=== PATIENT | female | born 1955 | race Caucasian/White ===

== ENCOUNTER 2018-01-03 19:19 | Observation (INO) | payer BC ==
[~2018-01-03] VITALS: Ht 162.6 cm; Wt 64.1 kg
--- NOTE | 2018-01-03 19:30 | PD ---
HPI Chief Complaint: Respiratory distress Time Seen by Provider: 19:29 Travel History International Travel<30 days: No Contact w/Intl Traveler<30days: No Traveled to known affect area: No History of Present Illness HPI 62-year-old female came to the emergency room with history of respiratory distress has been going on for past 5 days. Patient has history of asthma. She was seen in urgent care about 3 days ago and was started on Levaquin. Patient thought that she had albuterol inhaler and was using it. Today she realized that the inhaler was . Her symptoms have not been improving and actually progressively getting worse. This is the reason she came to the emergency room. No history of chest pain. Shortness of breath is worse when she ambulates. Patient's oxygen saturation was in the 80s in triage and was brought in emergently. Patient is awake and answering questions appropriately. [facility] Past Medical History Narrative Medical List of her past medical, surgical, social and family history reviewed from the nursing note. Social History Tobacco Use: No Allergies-Medications (Allergen,Severity, Reaction): Coded Allergies: Sulfa (Sulfonamide Antibiotics) (Verified Allergy, Unknown, 01/03/18) Comments List of her allergies reviewed from the nursing note. Reported Meds & Prescriptions Reported Meds & Active Scripts Active Prednisone 20 Mg Tab 20 Mg PO DIRECTED Take 60 MG daily x 4 days, then 40 MG x 4 days, then 20 MG daily x 4 days. Oxygen tank (Oxygen) 1 Ea Tank Liter NELSON.CANULA CONTINUOUS PRN Oxygen Concentrator Portable Gaseous 2 L/min via Nasal Cannula Continuous For 99 months Nebulizer/Adult Mask (N/A) 1 Kit Kit Kit .XX DIRECTED Xopenex Neb (Levalbuterol HCl) 0.63 Mg/3 Ml Neb 0.63 Mg NEB Q4HR NEB PRN 14 Days Reported Zyrtec (Cetirizine HCl) 10 Mg Tab.rapdis 10 Mg PO DAILY Xopenex Neb (Levalbuterol HCl) 0.63 Mg/3 Ml Neb 0.63 Mg NEB PRN Crestor (Rosuvastatin Calcium) 20 Mg Tab 20 Mg PO HS Estradiol 0.5 Mg Tab 0.5 Mg PO HS Valsartan-Hydrochlorothiazide 80-12.5 Mg Tab 1 Tab PO DAILY Metoprolol Tartrate 100 Mg Tab 100 Mg PO HS Singulair (Montelukast Sodium) 10 Mg Tab 10 Mg PO HS Metformin (Metformin HCl) 500 Mg Tab 1,000 Mg PO DAILYAC Narrative Medication Awaiting for the nurse to do the med reconciliation. Review of Systems Except as stated in HPI: all other systems reviewed are Neg Respiratory: Positive: Shortness of Breath Physical Exam Narrative GENERAL: Awake, alert, moderate distress SKIN: Focused skin assessment warm/dry. HEAD: Atraumatic. Normocephalic. EYES: Pupils equal and round. No scleral icterus. No injection or drainage. ENT: No nasal bleeding or discharge. Mucous membranes pink and moist. NECK: Trachea midline. No JVD. CARDIOVASCULAR: Regular rate and rhythm. No murmur appreciated. RESPIRATORY: Moderate respiratory distress. Diminished air entry bilaterally. GASTROINTESTINAL: Abdomen soft, non-tender, nondistended. Hepatic and splenic margins not palpable. MUSCULOSKELETAL: No obvious deformities. No clubbing. No cyanosis. No edema. NEUROLOGICAL: Awake and alert. No obvious cranial nerve deficits. Motor grossly within normal limits. Normal speech. PSYCHIATRIC: Appropriate mood and affect; insight and judgment normal. Data Data Last Documented VS Vital Signs Date Time Temp Pulse Resp B/P (MAP) Pulse Ox O2 Delivery O2 Flow Rate FiO2 01/03/18 23:00 93 18 162/75 (104) 95 Nasal Cannula 4.00 01/03/18 20:47 98.3 Orders Orders Complete Blood Count With Diff (01/03/18 19:38) Basic Metabolic Panel (Bmp) (01/03/18 19:38) B-Type Natriuretic Peptide (01/03/18 19:38) Troponin I (01/03/18 19:38) Iv Access Insert/Monitor (01/03/18 19:38) Electrocardiogram (01/03/18 19:38) Ecg Monitoring (01/03/18 19:38) Oximetry (01/03/18 19:38) Oxygen Administration (01/03/18 19:38) Chest, Single Ap (01/03/18 19:38) Sodium Chloride 0.9% Flush (Ns Flush) (01/03/18 19:45) Methylprednisolone So Succ Inj (Solumedr (01/03/18 19:45) Albuterol-Ipratropium Neb (Duoneb Neb) (01/03/18 19:45) Albuterol Neb (Albuterol Neb) (01/03/18 21:30) Ct Pulmonary Angiogram (01/03/18 ) Sodium Chlor 0.9% 1000 Ml Inj (Ns 1000 M (01/03/18 21:45) Iohexol 350 Inj (Omnipaque 350 Inj) (01/03/18 22:51) Arterial Blood Gas (Abg) (01/03/18 ) Place In Observation (01/04/18 ) Vital Signs (Adult) Q4H (01/04/18 01:06) Diet Heart Healthy (01/04/18 Breakfast) Sodium Chloride 0.9% Flush (Ns Flush) (01/04/18 09:00) Sodium Chloride 0.9% Flush (Ns Flush) (01/04/18 01:15) Albuterol Neb (Albuterol Neb) (01/04/18 01:15) Methylprednisolone So Succ Inj (Solumedr (01/04/18 02:00) Basic Metabolic Panel (Bmp) (01/04/18 06:00) Complete Blood Count With Diff (01/04/18 06:00) Heparin Inj (Heparin Inj) (01/04/18 06:00) Resp Oxygen Nelson C Titrat 1-4 L (01/04/18 ) Admit Order (Ed Use Only) (01/04/18 01:27) Labs Laboratory Tests Test 01/03/18 19:50 01/04/18 00:05 White Blood Count 9.4 TH/MM3 Red Blood Count 4.72 MIL/MM3 Hemoglobin 13.6 GM/DL Hematocrit 41.5 % Mean Corpuscular Volume 88.0 FL Mean Corpuscular Hemoglobin 28.8 PG Mean Corpuscular Hemoglobin Concent 32.8 % Red Cell Distribution Width 12.7 % Platelet Count 210 TH/MM3 Mean Platelet Volume 7.9 FL Neutrophils (%) (Auto) 84.9 % Lymphocytes (%) (Auto) 7.4 % Monocytes (%) (Auto) 6.9 % Eosinophils (%) (Auto) 0.0 % Basophils (%) (Auto) 0.8 % Neutrophils # (Auto) 7.9 TH/MM3 Lymphocytes # (Auto) 0.7 TH/MM3 Monocytes # (Auto) 0.7 TH/MM3 Eosinophils # (Auto) 0.0 TH/MM3 Basophils # (Auto) 0.1 TH/MM3 CBC Comment DIFF FINAL Differential Comment Blood Urea Nitrogen 23 MG/DL Creatinine 0.99 MG/DL Random Glucose 129 MG/DL Calcium Level 9.2 MG/DL Sodium Level 137 MEQ/L Potassium Level 3.7 MEQ/L Chloride Level 101 MEQ/L Carbon Dioxide Level 28.0 MEQ/L Anion Gap 8 MEQ/L Estimat Glomerular Filtration Rate 57 ML/MIN Troponin I LESS THAN 0.02 NG/ML B-Type Natriuretic Peptide 38 PG/ML Blood Gas Puncture Site RFEM Blood Gas Patient Temperature 98.6 Blood Gas HCO3 22 mmol/L Blood Gas Base Excess -2.6 mmol/L Blood Gas Oxygen Saturation 90 % Arterial Blood pH 7.36 Arterial Blood Partial Pressure CO2 40 mmHG Arterial Blood Partial Pressure O2 65 mmHG Arterial Blood Oxygen Content 17.4 Vol % Arterial Blood Carboxyhemoglobin 1.1 % Arterial Blood Methemoglobin 1.2 % Blood Gas Hemoglobin 13.7 G/DL Blood Gas Inspired Oxygen 21 % MDM Medical Decision Making Medical Screen Exam Complete: Yes Emergency Medical Condition: Yes Medical Record Reviewed: Yes Interpretation(s) Twelve-lead EKG was reviewed by me. Normal sinus rhythm, left axis deviation, nonspecific ST-T wave changes. Heart rate of 86 bpm. Differential Diagnosis COPD exacerbation, pneumonia, pleural effusion, congestive heart failure Narrative Course 10:03 PM blood test results are back and within acceptable limits. Chest x-ray has been read unremarkable by the radiologist. Patient was given 3 DuoNeb's and Solu-Medrol initially. Air entry has improved and patient says she feels better. However oxygen saturation was 93% with 2 L of oxygen via nasal cannula. Patient normally does not require oxygen at home. I wanted to see her oxygen saturation on room air. Patient ambulated to the bathroom and upon returning I was told by the nurse that oxygen went down to 65%. She was put back on nasal cannula. I have ordered for 2 more albuterol nebulizer. If patient continues to remain hypoxic she will require admission. I have also ordered a CT pulmonary angiogram for this hypoxia out of proportion to rule out PE at this point. 11PM CT pulmonary angiogram is pending. Case was signed over to the oncoming ER physician. Procedures EKG Prior to Arrival: No Scripts Prednisone (Prednisone) 20 Mg Tab 20 MG PO DIRECTED for copd, #24 TAB 0 Refills Take 60 MG daily x 4 days, then 40 MG x 4 days, then 20 MG daily x 4 days. Prov: Kait Gentile MD 01/04/18 Oxygen tank (Oxygen tank) 1 Ea Tank LITER NELSON.CANULA CONTINUOUS Y for shortness of breath, hypoxia, #2 0 Refills Oxygen Concentrator Portable Gaseous 2 L/min via Nasal Cannula Continuous For 99 months Prov: Kait Gentile MD 01/04/18 Nebulizer/Adult Mask (Nebulizer/Adult Mask) 1 Kit Kit KIT .XX DIRECTED for Breathing Treatment, #1 0 Refills Prov: Kait Gentile MD 01/04/18 Levalbuterol Neb (Xopenex Neb) 0.63 Mg/3 Ml Neb 0.63 MG NEB Q4HR NEB Y for wheezing for 14 Days, #120 NEBULE Prov: Kait Gentile MD 01/04/18 Holly Daniels MD Jan 03, 2018 19:30
[2018-01-03 19:32] VITALS: BP 169/87; PULSE 96; RESP 24; TEMP 98.5; O2SAT 88
[2018-01-03] MEDS ORDERED: methylPREDNISolone SOD SUCC 125 MG/2 ML VIAL IV PUSH ONE (19:45)
[2018-01-03] MEDS ORDERED: SODIUM CHLORIDE 0.9% FLUSH 10 ML FLUSH IVF PRN (19:45)
[2018-01-03] MEDS: RESP: ALBUTEROL 2.5 MG/IPRATROPIUM 0.5 MG NEB (SCH) INH (19:48)
[2018-01-03 19:55] VITALS: O2SAT 90
[2018-01-03 19:58] LABS: AUTOMATED NEUTROPHIL # 7.9 TH/MM3 (1.8-7.7); BASOPHIL # 0.1 TH/MM3 (0-0.2); BASOPHIL % 0.8 % (0.0-2.0); HEMATOCRIT 41.5 % (35.0-46.0); HEMOGLOBIN 13.6 GM/DL (11.6-15.3); LYMPH % 7.4 % (9.0-44.0); LYMPHOCYTE # 0.7 TH/MM3 (1.0-4.8); MEAN CORPUSCULAR HEMOGLOBIN 28.8 PG (27.0-34.0); MEAN CORPUSCULAR HGB CONC 32.8 % (32.0-36.0); MEAN PLATELET VOLUME 7.9 FL (7.0-11.0); MONO % 6.9 % (0.0-8.0); MONOCYTE # 0.7 TH/MM3 (0-0.9); NEUT % 84.9 % (16.0-70.0); PLATELET COUNT 210 TH/MM3 (150-450); RED BLOOD COUNT 4.72 MIL/MM3 (4.00-5.30); RED CELL DISTRIBUTION WIDTH 12.7 % (11.6-17.2); WHITE BLOOD COUNT 9.4 TH/MM3 (4.0-11.0)
[2018-01-03 20:05] LABS: CHLORIDE 101 MEQ/L (98-107); SODIUM (NA) 137 MEQ/L (136-145)
[2018-01-03 20:07] LABS: CALCIUM 9.2 MG/DL (8.5-10.1)
[2018-01-03 20:08] LABS: BLOOD UREA NITROGEN 23 MG/DL (7-18); GLUCOSE,RANDOM 129 MG/DL (74-106)
[2018-01-03 20:11] LABS: CREATININE 0.99 MG/DL (0.50-1.00); GLOMERULAR FILTRATION RATE 57 ML/MIN (>89)
[2018-01-03 20:16] LABS: TROPONIN I LESS THAN 0.02 NG/ML (0.02-0.05)
[2018-01-03 20:20] VITALS: O2SAT 93
[2018-01-03 20:47] VITALS: BP 148/63; PULSE 92; RESP 18; TEMP 98.3; O2SAT 94
--- NOTE | 2018-01-03 20:56 | RADRPT ---
EXAM DATE/TIME: 01/03/2018 19:53 [facility] COMPARISON: No previous studies available for comparison. INDICATIONS : Short of breath. MEDICAL HISTORY : Bronchitis. SURGICAL HISTORY : None. ENCOUNTER: Initial ACUITY: 1 day PAIN SCORE: 3/10 LOCATION: Bilateral chest FINDINGS: A single view of the chest demonstrates the lungs to be symmetrically aerated without evidence of mas s, infiltrate or effusion. The cardiomediastinal contours are unremarkable. Osseous structures are intact. CONCLUSION: No acute disease. Viraj Puga MD FACR on January 03, 2018 at 20:54 Board Certified Radiologist. This report was verified electronically.
[2018-01-03 21:30] VITALS: BP 170/70; PULSE 100; RESP 18; O2SAT 94
[2018-01-03] MEDS: RESP: ALBUTEROL 2.5 MG/3 ML NEB (SCH) INH (21:37)
[2018-01-03] MEDS ORDERED: SODIUM CHLOR 0.9% 1000 ML INJ 1,000 ML IV ONE (21:45)
[2018-01-03] MEDS ORDERED: IOHEXOL 350 MG/ML 10 ML VIAL (for RAD DIAG) IVCONTRAST ONE (22:51)
[2018-01-03 23:00] VITALS: BP 162/75; PULSE 93; RESP 18; O2SAT 95
--- NOTE | 2018-01-03 23:13 | RADRPT ---
EXAM DATE/TIME: 01/03/2018 22:37 [facility] COMPARISON: No previous studies available for comparison. INDICATIONS : Shortness of breath. IV CONTRAST: 65 cc Omnipaque 350 (iohexol) IV RADIATION DOSE: 10.60 CTDIvol (mGy) MEDICAL HISTORY : Hypertension. SURGICAL HISTORY : None. ENCOUNTER: Initial ACUITY: 1 day PAIN SCALE: 0/10 LOCATION: chest TECHNIQUE: Volumetric scanning of the chest was performed using a pulmonary embolism protocol MIP images were re constructed. Using automated exposure control and adjustment of the mA and/or kV according to patien t size, radiation dose was kept as low as reasonably achievable to obtain optimal diagnostic quality images. DICOM format image data is available electronically for review and comparison. Follow-up recommendations for detected pulmonary nodules are based at a minimum on nodule size and pa tient risk factors according to Fleischner Society Guidelines. FINDINGS: PULMONARY ARTERIES: No filling defects are seen in the pulmonary arteries through the segmental level. LUNGS: Densely calcified left lower lobe granuloma. PLEURAE: There is no pleural thickening or pleural effusion. MEDIASTINUM: There is good visualization of the great vessels of the middle mediastinum. No evidence of mediastin al or hilar adenopathy/mass. MUSCULOSKELETAL: Within normal limits for patient age. CONCLUSION: No evidence of pulmonary embolism Franko Mccarty MD on January 03, 2018 at 23:01 Board Certified Radiologist. This report was verified electronically.
--- NOTE | 2018-01-03 23:18 | PD ---
Physical Exam Time Seen by Provider: 23:[address] Arnett left this patient with me to check the results of the CT pulmonary angiogram and make a disposition, likely admission. Data Data Last Documented VS Vital Signs Date Time Temp Pulse Resp B/P (MAP) Pulse Ox O2 Delivery O2 Flow Rate FiO2 01/03/18 21:30 100 18 170/70 (103) 94 Nasal Cannula 2.00 01/03/18 20:47 98.3 Orders Orders Complete Blood Count With Diff (01/03/18 19:38) Basic Metabolic Panel (Bmp) (01/03/18 19:38) B-Type Natriuretic Peptide (01/03/18 19:38) Troponin I (01/03/18 19:38) Iv Access Insert/Monitor (01/03/18 19:38) Electrocardiogram (01/03/18 19:38) Ecg Monitoring (01/03/18 19:38) Oximetry (01/03/18 19:38) Oxygen Administration (01/03/18 19:38) Chest, Single Ap (01/03/18 19:38) Sodium Chloride 0.9% Flush (Ns Flush) (01/03/18 19:45) Methylprednisolone So Succ Inj (Solumedr (01/03/18 19:45) Albuterol-Ipratropium Neb (Duoneb Neb) (01/03/18 19:45) Albuterol Neb (Albuterol Neb) (01/03/18 21:30) Ct Pulmonary Angiogram (01/03/18 ) Sodium Chlor 0.9% 1000 Ml Inj (Ns 1000 M (01/03/18 21:45) Iohexol 350 Inj (Omnipaque 350 Inj) (01/03/18 22:51) Arterial Blood Gas (Abg) (01/03/18 ) Place In Observation (01/04/18 ) Vital Signs (Adult) Q4H (01/04/18 01:06) Diet Heart Healthy (01/04/18 Breakfast) Sodium Chloride 0.9% Flush (Ns Flush) (01/04/18 09:00) Sodium Chloride 0.9% Flush (Ns Flush) (01/04/18 01:15) Albuterol Neb (Albuterol Neb) (01/04/18 01:15) Methylprednisolone So Succ Inj (Solumedr (01/04/18 02:00) Basic Metabolic Panel (Bmp) (01/04/18 06:00) Complete Blood Count With Diff (01/04/18 06:00) Heparin Inj (Heparin Inj) (01/04/18 06:00) Resp Oxygen Rakesh C Titrat 1-4 L (01/04/18 ) Labs Laboratory Tests Test 01/03/18 19:50 01/04/18 00:05 White Blood Count 9.4 TH/MM3 Red Blood Count 4.72 MIL/MM3 Hemoglobin 13.6 GM/DL Hematocrit 41.5 % Mean Corpuscular Volume 88.0 FL Mean Corpuscular Hemoglobin 28.8 PG Mean Corpuscular Hemoglobin Concent 32.8 % Red Cell Distribution Width 12.7 % Platelet Count 210 TH/MM3 Mean Platelet Volume 7.9 FL Neutrophils (%) (Auto) 84.9 % Lymphocytes (%) (Auto) 7.4 % Monocytes (%) (Auto) 6.9 % Eosinophils (%) (Auto) 0.0 % Basophils (%) (Auto) 0.8 % Neutrophils # (Auto) 7.9 TH/MM3 Lymphocytes # (Auto) 0.7 TH/MM3 Monocytes # (Auto) 0.7 TH/MM3 Eosinophils # (Auto) 0.0 TH/MM3 Basophils # (Auto) 0.1 TH/MM3 CBC Comment DIFF FINAL Differential Comment Blood Urea Nitrogen 23 MG/DL Creatinine 0.99 MG/DL Random Glucose 129 MG/DL Calcium Level 9.2 MG/DL Sodium Level 137 MEQ/L Potassium Level 3.7 MEQ/L Chloride Level 101 MEQ/L Carbon Dioxide Level 28.0 MEQ/L Anion Gap 8 MEQ/L Estimat Glomerular Filtration Rate 57 ML/MIN Troponin I LESS THAN 0.02 NG/ML B-Type Natriuretic Peptide 38 PG/ML Blood Gas Puncture Site RFEM Blood Gas Patient Temperature 98.6 Blood Gas HCO3 22 mmol/L Blood Gas Base Excess -2.6 mmol/L Blood Gas Oxygen Saturation 90 % Arterial Blood pH 7.36 Arterial Blood Partial Pressure CO2 40 mmHG Arterial Blood Partial Pressure O2 65 mmHG Arterial Blood Oxygen Content 17.4 Vol % Arterial Blood Carboxyhemoglobin 1.1 % Arterial Blood Methemoglobin 1.2 % Blood Gas Hemoglobin 13.7 G/DL Blood Gas Inspired Oxygen 21 % [facility] Medical Record Reviewed: Yes Supervised Visit with MARIEL: No Interpretation(s) The CT pulmonary angiogram shows no evidence of pulmonary embolus, a heavily calcified granuloma in the left lower lobe is noted. The CBC is normal except for 85% neutrophils. The BUN is 23 and glucose is 129 but the rest of the basic metabolic profile is normal. The troponin I and BNP are normal. Differential Diagnosis Pneumonia, COPD with acute exacerbation, allergic bronchospasm, hypoxemia Narrative Course When the patient walks around her oxygenation saturation drops into the mid 60s. When she lies down and rest it recovers to the upper 80s. Unfortunately, when her blood gases were drawn she was somewhat anxious and hyperventilating and the O2 sat was 90%. Physician Communication Physician Communication I discussed the patient with Dr. Fried, the patient will be 23 hour observation to her. Diagnosis Primary Impression: Bronchospasm, acute Additional Impression: Hypoxemia Admitting Information Admitting Physician Requests: Observation Disposition: 01 DISCHARGE [place] Raymundo Neville MD Jan 03, 2018 23:18
[2018-01-04] VITALS (9 sets, daily range): BP systolic 141–152; BP diastolic 63–89; PULSE 70–103; RESP 18–26; TEMP 98.3–99.2; O2SAT 91–95
[2018-01-04] MEDS ORDERED: RESP: ALBUTEROL 2.5 MG/3 ML NEB (PRN) INH (01:15)
[2018-01-04] MEDS ORDERED: SODIUM CHLORIDE 0.9% FLUSH 10 ML FLUSH IV FLUSH PRN (01:15)
[2018-01-04] MEDS: methylPREDNISolone SOD SUCC 125 MG/2 ML VIAL IV PUSH SCH ×3 (02:04→14:56)
[2018-01-04] MEDS ORDERED: ESTR0.5T PO (03:00)
[2018-01-04] MEDS ORDERED: METF500T PO (03:00)
[2018-01-04] MEDS ORDERED: METO100T PO (03:00)
[2018-01-04] MEDS ORDERED: ROSU20 PO (03:00)
[2018-01-04] MEDS ORDERED: CETI-14 PO (03:00)
[2018-01-04] MEDS ORDERED: MONT10TA2 PO (03:00)
[2018-01-04] MEDS ORDERED: VALS80TA2 PO (03:00)
[2018-01-04] MEDS ORDERED: LEVA.63I NEB ×2 (03:00→11:04)
[2018-01-04 04:52] LABS: AUTOMATED NEUTROPHIL # 8.7 TH/MM3 (1.8-7.7); BASOPHIL # 0.1 TH/MM3 (0-0.2); BASOPHIL % 0.6 % (0.0-2.0); EOSINOPHIL % 0.1 % (0.0-4.0); HEMATOCRIT 39.5 % (35.0-46.0); HEMOGLOBIN 13.2 GM/DL (11.6-15.3); LYMPH % 6.8 % (9.0-44.0); LYMPHOCYTE # 0.6 TH/MM3 (1.0-4.8); MEAN CORPUSCULAR HEMOGLOBIN 29.4 PG (27.0-34.0); MEAN CORPUSCULAR HGB CONC 33.4 % (32.0-36.0); MEAN PLATELET VOLUME 7.9 FL (7.0-11.0); MONO % 1.3 % (0.0-8.0); MONOCYTE # 0.1 TH/MM3 (0-0.9); NEUT % 91.2 % (16.0-70.0); PLATELET COUNT 175 TH/MM3 (150-450); RED BLOOD COUNT 4.49 MIL/MM3 (4.00-5.30); RED CELL DISTRIBUTION WIDTH 12.8 % (11.6-17.2); WHITE BLOOD COUNT 9.5 TH/MM3 (4.0-11.0)
[2018-01-04 05:04] LABS: BICARBONATE 26.5 MEQ/L (21.0-32.0); CALCIUM 8.4 MG/DL (8.5-10.1)
[2018-01-04 05:08] LABS: CREATININE 0.83 MG/DL (0.50-1.00)
[2018-01-04] MEDS: HEPARIN SODIUM - SQ 10,000 UNITS/ML VIAL SQ SCH ×2 (06:35→14:00)
[2018-01-04] MEDS ORDERED: ACETAMINOPHEN 325 MG TAB PO ONE (08:00)
[2018-01-04] MEDS ORDERED: SODIUM CHLORIDE 0.9% FLUSH 10 ML FLUSH IV FLUSH SCH (09:00)
--- NOTE | 2018-01-04 10:24 | HHI.HP ---
HPI Service [facility] Primary Care Physician No Primary Care Physician Admission Diagnosis Bronchitis with bronchospasm, hypoxemia Diagnoses: Travel History International Travel<30 Days: No Contact w/Intl Traveler <30 Da: No Traveled to Known Affected Are: No History of Present Illness hx from patient, ER notes, and review of medical records. pt reports she has been short of breath since Monday felt worse and worse with time and went to urgent care on Monday o2 was low in 70s high to low 80s at urgent care was given prednisone and levofloxacin prescription there states she usually gets worse with her chronic bronchitis like this when she gets allergies and sinus issues which she has been getting lately she was this time given prednisone but it is lower dose than her usual dose of episodes like this and she thought this might be why she is not improving today, she was quite dsypneic coming back to the car after dinner and finally at to drive her to hospital she also found out she has been using xopenex also reports of mild fever at home at rest 88% without oxygen on my exam Review of Systems Except as stated in HPI: all other systems reviewed are Neg Past Family Social History Past Medical History chronic bronchitis asthma induced by allergies usually twice a year symptoms - last episode in dec used to smoke from 15yrs old to about 45yo htn borderline dm hyperlipidemia Past Surgical History 3 c section hysterectomy Allergies: Coded Allergies: Sulfa (Sulfonamide Antibiotics) (Verified Allergy, Unknown, 01/03/18) Family History father- lung cancer grandfather- dm sister- borderline dm mom- htn, lipid Social History used to smoke , quit 15yrs ago no etoh abuse no drugs abuse snow[place] here- leaving at end of month Physical Exam Vital Signs Vital Signs Date Time Temp Pulse Resp B/P (MAP) Pulse Ox O2 Delivery O2 Flow Rate FiO2 01/04/18 07:51 95 Nasal Cannula 3.00 01/04/18 07:00 98.4 88 26 143/75 (97) 95 01/04/18 06:00 74 01/04/18 05:00 74 01/04/18 04:00 85 4/5/18 03:25 99.2 70 24 146/89 (108) 95 01/04/18 03:16 01/04/18 02:30 103 18 152/84 (106) 92 Nasal Cannula 4.00 01/03/18 23:00 93 18 162/75 (104) 95 Nasal Cannula 4.00 01/03/18 21:30 100 18 170/70 (103) 94 Nasal Cannula 2.00 01/03/18 20:47 98.3 92 18 148/63 (91) 94 Nasal Cannula 2.00 01/03/18 20:46 94 Nasal Cannula 2.00 01/03/18 20:20 93 Nasal Cannula 2.00 01/03/18 19:55 90 Room Air 01/03/18 19:52 Room Air 01/03/18 19:32 98.5 96 24 169/87 (114) 88 Physical Exam GENERAL: This is a well-nourished, well-developed patient, in no apparent distress. SKIN: No rashes, ecchymoses or lesions. Cool and dry. HEAD: Atraumatic. Normocephalic. No temporal or scalp tenderness. EYES: No scleral icterus. No injection or drainage. ENT: Nose without bleeding, purulent drainage or septal hematoma. Airway patent. NECK: Trachea midline. No JVD Supple, nontender, no meningeal signs. CARDIOVASCULAR: tachycardic around 100, regular rhythm without murmurs, gallops , or rubs. RESPIRATORY: bilaterally decreased air entry, tight air entry, GASTROINTESTINAL: Abdomen soft, non-tender, nondistended. No guarding. MUSCULOSKELETAL: Extremities without clubbing, cyanosis, or edema. No calf tenderness. NEUROLOGICAL: Awake and alert. Motor and sensory grossly within normal limits. Normal speech. Laboratory Laboratory Tests Test 01/03/18 19:50 01/04/18 00:05 01/04/18 04:40 White Blood Count 9.4 9.5 Red Blood Count 4.72 4.49 Hemoglobin 13.6 13.2 Hematocrit 41.5 39.5 Mean Corpuscular Volume 88.0 88.0 Mean Corpuscular Hemoglobin 28.8 29.4 Mean Corpuscular Hemoglobin Concent 32.8 33.4 Red Cell Distribution Width 12.7 12.8 Platelet Count 210 175 Mean Platelet Volume 7.9 7.9 Neutrophils (%) (Auto) 84.9 91.2 Lymphocytes (%) (Auto) 7.4 6.8 Monocytes (%) (Auto) 6.9 1.3 Eosinophils (%) (Auto) 0.0 0.1 Basophils (%) (Auto) 0.8 0.6 Neutrophils # (Auto) 7.9 8.7 Lymphocytes # (Auto) 0.7 0.6 Monocytes # (Auto) 0.7 0.1 Eosinophils # (Auto) 0.0 0.0 Basophils # (Auto) 0.1 0.1 CBC Comment DIFF FINAL DIFF FINAL Differential Comment Blood Urea Nitrogen 23 15 Creatinine 0.99 0.83 Random Glucose 129 170 Calcium Level 9.2 8.4 Sodium Level 137 139 Potassium Level 3.7 3.5 Chloride Level 101 104 Carbon Dioxide Level 28.0 26.5 Anion Gap 8 9 Estimat Glomerular Filtration Rate 57 70 Troponin I LESS THAN 0.02 B-Type Natriuretic Peptide 38 Blood Gas Puncture Site RFEM Blood Gas Patient Temperature 98.6 Blood Gas HCO3 22 Blood Gas Base Excess -2.6 Blood Gas Oxygen Saturation 90 Arterial Blood pH 7.36 Arterial Blood Partial Pressure CO2 40 Arterial Blood Partial Pressure O2 65 Arterial Blood Oxygen Content 17.4 Arterial Blood Carboxyhemoglobin 1.1 Arterial Blood Methemoglobin 1.2 Blood Gas Hemoglobin 13.7 Blood Gas Inspired Oxygen 21 Result Diagram: 01/04/1843901/04/18439 Caprini VTE Risk Assessment Caprini VTE Risk Assessment: Mod/High Risk (score >= 2) Caprini Risk Assessment Model Point Value = 1 Point Value = 2 Point Value = 3 Point Value = 5 Age 41-60 Minor surgery BMI > 25 kg/m2 Swollen legs Varicose veins or History of unexplained or recurrent spontaneous Oral contraceptives or hormone replacement Sepsis (< 1 month) Serious lung disease, including pneumonia (< 1 month) Abnormal pulmonary function Acute myocardial infarction Congestive heart failure (< 1 month) History of inflammatory bowel disease Medical patient at bed rest Age 61-74 Arthroscopic surgery Major open surgery (> 45 min) Laparoscopic surgery (> 45 min) Malignancy Confined to bed (> 72 hours) Immobilizing plaster cast Central venous access Age >= 75 History of VTE Family history of VTE Factor V Leiden Prothrombin [id number] Lupus anticoagulant Anticardiolipin antibodies Elevated serum homocysteine Heparin-induced thrombocytopenia Other congenital or acquired thrombophilia Stroke (< 1 month) Elective arthroplasty Hip, pelvis, or leg fracture Acute spinal cord injury (< 1 month) Prophylaxis Regimen Total Risk Factor Score Risk Level Prophylaxis Regimen 0-1 Low Early ambulation 2 Moderate Order ONE of the following: *Sequential Compression Device (SCD) *Heparin 5000 units SQ BID 3-4 Higher Order ONE of the following medications: *Heparin 5000 units SQ TID *Enoxaparin/Lovenox 40 mg SQ daily (WT < 150 kg, CrCl > 30 mL/min) *Enoxaparin/Lovenox 30 mg SQ daily (WT < 150 kg, CrCl > 10-29 mL/min) *Enoxaparin/Lovenox 30 mg SQ BID (WT < 150 kg, CrCl > 30 mL/min) AND/OR *Sequential Compression Device (SCD) 5 or more Highest Order ONE of the following medications: *Heparin 5000 units SQ TID (Preferred with Epidurals) *Enoxaparin/Lovenox 40 mg SQ daily (WT < 150 kg, CrCl > 30 mL/min) *Enoxaparin/Lovenox 30 mg SQ daily (WT < 150 kg, CrCl > 10-29 mL/min) *Enoxaparin/Lovenox 30 mg SQ BID (WT < 150 kg, CrCl > 30 mL/min) AND *Sequential Compression Device (SCD) Assessment and Plan Assessment and Plan Impression: Acute on chronic bronchitis Suspects Underlying COPD with acute exacerbation Hypoxia secondary to above Comorbid conditions: chronic bronchitis asthma induced by allergies usually twice a year symptoms - last episode in dec prior tobacco abuse- used to smoke from 15yrs old to about 45yo htn borderline dm hyperlipidemia Plan: saturation 88% on RA at rest during my exam respiratory therapist trying to teach pt to do peak flow- result was 60 - but technique questionable and she would come back to check again Respiratory rate initially on my arrival was 25-32 but improved as conversation went on pt and at bedside want to go home as their kids are coming over the weekend from out of state to visit just for the weekend she is not 100% better, but states she is familiar with these episodes where she would even drive home with o2 sat in 70s to get her xopenex inhalor - she really believes her current attack is due to allergies, using xopenex and not having high dose of prednisone from urgent care discharge pt is reliable historian and has good insights into her medical conditions , as is her thus agree to discharge her with the following arrangements: walk test 02 prescription - since this seems to be not her first time and rather this more of copd repeat peak flow xopenex nebs now and during the day xopenex prescription written continue levofloxacin as prescribed by urgent care prednisone tapering dose xopenex MDI as well after above treatment pland is done and arranged, then later will be discharged home in pm discussed with nursing and patient in detail Discussed Condition With patient, , nursing staff, home health care case manager Kait Gentile MD Jan 04, 2018 10:24
[2018-01-04] MEDS ORDERED: LEVOFLOXACIN 750 MG PREMIX INJ 150 ML IV SCH (11:00)
[2018-01-04] MEDS ORDERED: NEBULIZER/ADULT1 KIT (11:05)
[2018-01-04] MEDS ORDERED: PRED5TAB PO (11:15)
[2018-01-04] MEDS ORDERED: PRED2.5T PO (11:15)
[2018-01-04] MEDS ORDERED: PRED50 PO (11:15)
[2018-01-04] MEDS ORDERED: PRED10 PO (11:15)
[2018-01-04] MEDS ORDERED: PRED20 PO ×2 (11:15→14:42)
[2018-01-04] MEDS ORDERED: VALSARTAN 80 MG TAB PO ONE (12:00)
[2018-01-04] MEDS ORDERED: CETIRIZINE HCL 10 MG TAB PO ONE (12:00)
[2018-01-04] MEDS ORDERED: RESP: LEVALBUTEROL HYDROCHLORIDE 0.63 MG/3 ML NEB (PRN) NEB (12:00)
[2018-01-04] MEDS ORDERED: OXYGENTANK NAS.CANULA (12:36)
--- NOTE | 2018-01-04 13:44 | EKG ---
Date Performed: 01/03/2018 Time Performed: 20:33:22 PTAGE: 62 years EKG: Sinus rhythm BORDERLINE LEFT AXIS DEVIATION INCOMPLETE RIGHT BUNDLE BRANCH BLOCK BORDERLINE ECG NO PREVIOUS TRACING DOCTOR: Jyoti Trujillo Interpretating Date/Time 01/04/2018 13:40:19
--- NOTE | 2018-01-04 14:44 | HHI.DCPOC ---
Discharge Care Plan Diagnosis: (1) COPD exacerbation (2) Bronchospasm, acute (3) Hypoxemia Goals to Promote Your Health * To prevent worsening of your condition and complications * To maintain your health at the optimal level Directions to Meet Your Goals Take your medications as prescribed Follow your dietary instruction Follow activity as directed Keep your appointments as scheduled Take your immunizations and boosters as scheduled If your symptoms worsen call your PCP, if no PCP go to Urgent Care Center or Emergency Room Smoking is Dangerous to Your Health. Avoid second hand smoke Call the 24-hour hour crisis hotline for domestic abuse at Kait Gentile MD Jan 04, 2018 14:44
--- NOTE | 2018-01-04 14:54 | HHI.DCPOC ---
Discharge Care Plan Additional Problems Patient is admitted for shortness of breath, hypoxia. Bronchospasms. Patient has history of chronic bronchitis/allergic rhinitis. She expressed that this is exactly the same type of symptoms that she usually gets twice a year with her chronic bronchitis issues. Prior history of 30 years smoking history although she quit about 15 years ago. Patient is still saturating at 88% at rest. Walk test was done and she qualifies for home oxygen. However patient and family really wants patient to go home today because patient 's children are coming here from out of state just to stay over the weekend. Patient is reliable patient, her states that he will be at her side and that if there is any doubt that she is not doing better, they will call 911. Patient will be prescribed Xopenex nebulizers. She is prescribed prednisone tapering dose at a higher dose. She also has prescriptions for 14 days of levofloxacin 750 mg by mouth daily. She received this prescription from urgent care and filled it and the medications are at home. Home oxygen has been arranged through the case management via [facility]. However, since patient's insurance is through [employer] [facility], home oxygen may not be able to be arranged by the end of today. Possible it will be tomorrow. Discussed this with patient and case maker. Patient really doesn't want to stay at hospital another day to wait on home oxygen arrangements. She will take responsibility and go home with family. Kait Gentile MD Jan 04, 2018 14:54
[2018-01-04] MEDS ORDERED: MONTELUKAST SODIUM 10 MG TAB PO SCH (21:00)
[2018-01-04] MEDS ORDERED: METOPROLOL TARTRATE 100 MG TAB PO SCH (21:00)
[2018-01-04] MEDS ORDERED: ESTRADIOL 1 MG TAB PO SCH (21:00)
[2018-01-04] MEDS ORDERED: ATORVASTATIN 40 MG TAB PO SCH (21:00)
[2018-01-05] MEDS ORDERED: CETIRIZINE HCL 10 MG TAB PO SCH (09:00)
[2018-01-05] MEDS ORDERED: VALSARTAN 80 MG TAB PO SCH (09:00)
[2018-01-05] MEDS ORDERED: HYDROCHLOROTHIAZIDE 12.5 MG CAP PO SCH (09:00)
== END 2018-01-04 16:15 | disposition home or self-care (01) ==
LOC: PHED 19:19 → PHEDA 01-04 01:29 → PHICU 01-04 03:16
PROVIDERS: ADMIT Internal Medicine; ATTEND Internal Medicine
DX: J44.0 Chronic obstructive pulmonary disease with (acute) lower respiratory infection (principal); J20.9 Acute bronchitis, unspecified; J44.1 Chronic obstructive pulmonary disease with (acute) exacerbation; R09.02 Hypoxemia; J45.909 Unspecified asthma, uncomplicated; I10 Essential (primary) hypertension; E78.5 Hyperlipidemia, unspecified; R73.03 Prediabetes; I45.10 Unspecified right bundle-branch block; Z79.899 Other long term (current) drug therapy; Z87.891 Personal history of nicotine dependence
CPT/HCPCS: 36600; 71045; 71275; 80048; 82805; 83880; 84484; 85025; 93005; 94618; 94640; 94664; 94799; 96361; 96365; 96372; 96375; 96376; 99285; G0378; J1644; J1956; J2930; J7030; J7613; J7614; Q9967